=== PATIENT | male | born 1950 | race Caucasian/White ===

== ENCOUNTER 2016-11-27 14:43 | Emergency (ER) | payer OTHER, MEDICARE ==
[~2016-11-27] VITALS: Ht 188 cm; Wt 106.0 kg
[2016-11-27] MEDS ORDERED: SIMVASTATIN20 MG PO (15:33)
[2016-11-27] MEDS ORDERED: METO25TAB PO (15:33)
[2016-11-27] MEDS ORDERED: PRILOSEC20 MG PO (15:33)
[2016-11-27] MEDS ORDERED: ADLT ASA LOW81 MG PO (15:34)
[2016-11-27] MEDS ORDERED: LOSARTAN POT50 MG PO (15:34)
[2016-11-27] MEDS ORDERED: BACTRIM DS1 TAB PO ×2 (16:17→18:01)
[2016-11-27 17:50] VITALS: BP 129/78
== END 2016-11-27 17:50 | disposition home or self-care (01) | DRG 603 ==
LOC: ED 14:43
DX: L03.114 Cellulitis of left upper limb (principal); S61.432A Puncture wound without foreign body of left hand, initial encounter; W29.8XXA Contact with other powered hand tools and household machinery, initial encounter; Y93.89 Activity, other specified; Y92.009 Unspecified place in unspecified non-institutional (private) residence as the place of occurrence of the external cause